=== PATIENT | female | born 1980 | race Hispanic/Latino ===

== ENCOUNTER 2017-05-03 03:40 | Inpatient (IN) | payer MEDICAID, OTHER, SELFPAY ==
[2017-05-03 04:13] VITALS: BMI 28.9
--- NOTE | 2017-05-03 05:12 | PRG ---
LABOR AND DELIVERY TRIAGE NOTE DATE OF SERVICE: 05/03/2017 TIME OF EVALUATION: 04:15. TIME OF DICTATION: 04:30 This is a patient of Dr. Capri Aparicio. REASON FOR EVALUATION: Suspected contractions at term. HISTORY OF PRESENT ILLNESS: In brief, this is a 37-year-old 6, para 5 who is at 38 weeks and 3 days by stated EDC, who sees Dr. Capri Aparicio. She denies any complications. She arrives with a complaint of bloody discharge and irregular contractions. She denies fevers, tra edward, or rupture of membranes. She has good movement. REVIEW OF SYSTEMS: Complete review of systems was checked and is otherwise negative, unless specifi ed in the HPI. PAST MEDICAL HISTORY: Negative. ALLERGIES: Negative. PAST SURGICAL HISTORY: Noncontributory. OB HISTORY: Significant for 5 prior vaginal births. PHYSICAL EXAMINATION: VITAL SIGNS: Initial blood pressure was 146/80, but immediately retaken was 128/80. She is afebril e. Clinically, she is in no acute distress. ABDOMEN: Soft and nontender. There is no rigidity noted. On vaginal inspection, there is no evide nce of gross vaginal bleeding or evidence of ruptured membranes. CERVICAL EXAMINATION: Reveals a cervix that is 1 cm dilated and still thick. There is no oscar ble eding noted on exam. On nonstress test, heart tones are in the 140s to 150s with positive variability, but no accel erations are seen just yet. We will continue to monitor. Contractions are irregular on tocodynamom eter. ASSESSMENT: This is a multigravida at 38 weeks, patient of Dr. Aparicio, with latent labor, 1 cm dila tion. PLAN: 1. Continue nonstress test for now. 2. No evidence of true labor at this time. 3. The patient's nonstress test remains nonreactive. We may get a biophysical profile for more inf ormation. For now, continue to follow.
[2017-05-03] MEDS ORDERED: Promethazine HCl 25 MG/ML VIAL IM PRN ×2 (05:16→13:33)
[2017-05-03] MEDS ORDERED: HYDROcodone/Acetaminophen 5/325 mg Tablet PO PRN ×2 (05:16)
[2017-05-03] MEDS ORDERED: Lidocaine 1% (PF) 30 ML VIAL SC PRN (05:16)
[2017-05-03] MEDS ORDERED: Ibuprofen 800 MG TAB PO PRN (05:16)
[2017-05-03] MEDS ORDERED: Ondansetron HCl/PF 4 MG/2 ML Vial IVP PRN ×3 (05:16→22:16)
[2017-05-03] MEDS ORDERED: LR / Pitocin 40 units/1000 ml 1,000 ML IV PRN (05:16)
--- NOTE | 2017-05-03 06:19 | HP ---
This is a patient of Dr. Capri Aparicio. TIME OF ADMISSION: 512 REASON FOR ADMISSION: Elevated blood pressures at 38 weeks. HISTORY OF PRESENT ILLNESS: The patient had previously dictated on just about an hour ago who arrived as a with complaint of irregular contractions and bloody vaginal discharge. She was only found to be 1 cm dilated. Please turn to my prior dictation, dictated about 30 minutes ago for full details which will serve as a functional H\T\P. I have also ordered a biophysical profile due to the initial nonstress test being nonreactive due to limited accels, but still possessing moderate variability. The biophysical profile was normal at 8/ 8. Total score is 8/10. Although the heart tone has moderate variability , it initially was nonreactive making the score 8/10. However, upon review of the first portion of this strip at 05/03/2017 at 0400, accelerations were noted. Biophysical profile is 10/10. However, the patient has been noted to have persistent blood pressure elevations. At 0401 blood pressure was 147/85, repeat was 128/80 followed by 141/81 and then 145/81 and the last blood pressure at 0501 was 137/82. As she is a grand multiparous patient at 38 weeks with systolic blood pressures in the 140s I have elected to keep the patient for trial of induction due to elevated blood pressures. PHYSICAL EXAMINATION: Please see prior notes/progress note for full details. ASSESSMENT: This is a 37-year-old G6, P5 at 38 weeks with elevated blood pressures (Hypertension in ), 1 cm. PLAN: 1. Admit to Labor and Delivery due to elevated blood pressures. 2. Trial of induction with Cytotec. 3. induced hypertension evaluation will include a urine protein and creatinine ratio, CBC, and a complete metabolic profile. 4. We will notify Dr. Capri Aparicio of the patient's arrival. MARSHA
[2017-05-03] MEDS: Lactated Ringer's 1,000 ML IV SCH ×2 (06:46→12:32)
[2017-05-03 07:10] LABS: Hematocrit 37.2 % (36.0-47.0); Mean Platelet Volume 7.8 fL (7.4-10.4); Red Blood Cell (RBC) Count 3.84 mill/uL (4.20-5.40); White Blood Cell (WBC) Count 7.9 thou/uL (4.8-10.8)
[2017-05-03 07:28] LABS: ALT (SGPT) 11 U/L (8-55); AST (SGOT) 16 U/L (5-34); Alkaline Phosphatase 113 U/L (40-150); Anion Gap 13 mmol/L (10-20); BUN (Urea Nitrogen) 7 mg/dL (7.0-18.7); Bilirubin, Total 0.4 mg/dL (0.2-1.2); Calc. Creatinine Clearance 117 mL/min (70-130); Calcium 9.1 mg/dL (7.8-10.44); Carbon Dioxide 23 mmol/L (22-29); Chloride 106 mmol/L (98-107); Estimated GFR-MDRD Greater than 90; Globulin 3.5 g/dL (2.4-3.5); Protein, Total 6.8 g/dL (6.0-8.3)
[2017-05-03] MEDS ORDERED: LR 500 ML/Oxytocin 10 units 500 ML ONE (08:01)
[2017-05-03] MEDS: Misoprostol 100 MCG TAB VAG SCH ×2 (09:03→13:27)
--- NOTE | 2017-05-03 09:15 | ULT ---
PRELIMINARY REPORT/[facility]/EMERGENCY AFTER HOURS PROCEDURE: EXAM: US Biophysical Profile Without Non-Stress Testing CLINICAL HISTORY: 37 years old, female; Signs and symptoms; Other: Bloody vag. Discharge; ; Patient HX: 38 wks TECHNIQUE: Real-time ultrasound of the maternal pelvis for biophysical profile evaluation with image docu mentation. COMPARISON: No relevant prior studies available. FINDINGS: Single living fetus in cephalic position. Biophysical profile is 8/8. heart activity documented by the technologist, 147 bpm. Posterior/fundal placenta. No visible placental abnormality on the provided images. Amniotic fluid volume appears in lower range of normal, MAGUE 7.3 cm. Cervical length was estimated with transabdominal scanning, measuring approximately 4.2 cm. No definite cervical canal dilation or fluid on the provided images. measurements were not obtained at this time. Detailed/complete evaluation of anatomy was not performed at this time. No visible maternal adnexal abnormality. The urinary bladder was not completely evaluated/imaged at this time. IMPRESSION: Single living fetus, details above. Biophysical profile is 8/8. Amniotic fluid volume appears in lower range of normal, MAGUE 7.3 cm. Posterior/fundal placenta. No visible placental abnormality on the provided images. Other details discussed above. Thank you for allowing us to participate in the care of your patient. Dictated and Authenticated by: Jason Rodriguez MD 05/03/2017 5:47 AM Central Time ([place] \T\ [place]) FINAL REPORT BIOPHYSICAL PROFILE LIMITED ULTRASOUND: FINDINGS/IMPRESSION: I agree with the above-provided preliminary interpretation provided above. Biophysical profile score 8/8. POS: [facility]
[2017-05-03] MEDS ORDERED: Fentanyl 4 mcg/Marc 0.1% Cadd 100 ML ONE (12:50)
[2017-05-03] MEDS ORDERED: Acetaminophen 325 MG TAB PO PRN (13:33)
[2017-05-03] MEDS ORDERED: ePHEDrine/0.9% NaCl/PF SYRINGE 50 mg/10 ml SLOW IVP PRN (13:33)
[2017-05-03] MEDS ORDERED: Naloxone HCl 0.4 mg/ml Vial IVP PRN ×2 (13:33)
[2017-05-03] MEDS ORDERED: diphenhydrAMINE 50 MG/ML VIAL IVP PRN (13:33)
[2017-05-03] MEDS ORDERED: Lactated Ringer's 500 ML IV PRN (13:33)
[2017-05-03] MEDS ORDERED: Eucerin (Mineral Oil/Petrolatum,White) 30 gm Jar TOP PRN (13:33)
[2017-05-03] MEDS ORDERED: Communication Order-Pharmacy FS SCH (13:45)
[2017-05-03] MEDS ORDERED: Fentanyl 4mcg/Marcaine 0.1% Cassette 100 ML EPIDURAL SCH (13:45)
[2017-05-03] MEDS ORDERED: Bupivacaine 0.25% HCL 30 ML VIAL ONE (20:05)
[2017-05-03] MEDS ORDERED: Benzocaine/Menthol 20-0.5% 60 ML CAN TOP PRN (22:16)
[2017-05-03] MEDS ORDERED: Milk Of Magnesia 30 ML UDCUP PO PRN (22:16)
[2017-05-03] MEDS ORDERED: LR / Pitocin 40 units/1000 ml 1,000 ML IV SCH (22:16)
[2017-05-03] MEDS ORDERED: Adacel (T-DAP) 0.5 ML VIAL IM ONE (22:16)
[2017-05-03] MEDS ORDERED: diphenhydrAMINE 25 MG CAP PO PRN (22:16)
[2017-05-03] MEDS ORDERED: Acetaminophen/Codeine 30-300mg Tablet PO PRN (22:16)
[2017-05-03] MEDS ORDERED: Preparation H Ointment 28 GM TUBE PR PRN (22:16)
[2017-05-03] MEDS ORDERED: Lanolin Ointment 7 GM TUBE TOP PRN (22:16)
[2017-05-03] MEDS ORDERED: Bisacodyl 10 MG SUPP PR PRN (22:16)
[2017-05-04] MEDS: Misoprostol 100 MCG TAB VAG SCH ×2 (01:01→01:02)
[2017-05-04] MEDS: Ibuprofen 800 MG TAB PO SCH ×4 (01:01→21:03)
[2017-05-04] MEDS: Lactated Ringer's 1,000 ML IV SCH (01:02)
[2017-05-04] MEDS: Ferrous Sulfate 325 MG TAB PO SCH ×2 (07:47→17:27)
[2017-05-04] MEDS: Docusate (Surfak) 240 MG CAP PO SCH ×2 (08:43→21:03)
[2017-05-04] MEDS: HYDROcodone/Acetaminophen 5/325 mg Tablet PO PRN (08:43)
[2017-05-04] MEDS: Prenatal Vitamin 1 TAB PO SCH (08:43)
[2017-05-05] MEDS: Ibuprofen 800 MG TAB PO SCH (06:06)
[2017-05-05 08:35] VITALS: BP 135/71; TEMP 97.9
[2017-05-05] MEDS: Prenatal Vitamin 1 TAB PO SCH (08:44)
[2017-05-05] MEDS: Docusate (Surfak) 240 MG CAP PO SCH (08:44)
[2017-05-05] MEDS: Ferrous Sulfate 325 MG TAB PO SCH (08:46)
[2017-05-05] MEDS: HYDROcodone/Acetaminophen 5/325 mg Tablet PO PRN (11:12)
== END 2017-05-05 12:10 | disposition home or self-care (01) | DRG 775 ==
LOC: L&D/OP 03:40 → L&D 05:15 → 3SW 22:11
PROVIDERS: ADMIT Family Medicine; ATTEND Family Medicine
PROC: 10E0XZZ Delivery of Products of Conception, External Approach (ICD-10-PCS; principal; 2017-05-03)
PROC: 3E0P7VZ Introduction of Hormone into Female Reproductive, Via Natural or Artificial Opening (ICD-10-PCS; 2017-05-03)
PROC: 0HQ9XZZ Repair Perineum Skin, External Approach (ICD-10-PCS; 2017-05-03)
DX: O13.4 Gestational [pregnancy-induced] hypertension without significant proteinuria, complicating childbirth (principal); J45.909 Unspecified asthma, uncomplicated; O70.0 First degree perineal laceration during delivery; Z37.0 Single live birth; Z3A.38 38 weeks gestation of pregnancy; O99.52 Diseases of the respiratory system complicating childbirth
CPT/HCPCS: 36415; 76819; 80053; 82570; 84156; 85027; 86780; 86850; 86900; 86901; 87340; 87389; 90471; 90732; C1726; G0009; J2001; J7120; S0020